=== PATIENT | female | born 1995 | race Hispanic/Latino ===

== ENCOUNTER 2017-02-19 07:33 | Outpatient (CLI) | payer BC ==
--- NOTE | 2017-02-19 08:29 | ULT ---
ULTRASOUND ABDOMEN COMPLETE: HISTORY: A 21-year-old female with generalized abdominal pain, nausea, and emesis. FINDINGS: The gallbladder has normal wall thickness and has no evidence of gallstones or sludge. The hepatic e chogenicity is normal. The kidneys have normal echogenicity, and there is no hydronephrosis. There is no splenomegaly. There is no abdominal aortic aneurysm. No free fluid is identified. The inferi or vena cava is visualized. The pancreas is visualized, although ultrasound is relatively insensitiv e for pancreatic pathology compared to CT and MRI. There is no biliary dilation. The common duct ca liber is 2 mm. IMPRESSION: Normal. jn [] POS: [facility]
== END 2017-02-19 07:34 | disposition home or self-care (01) ==
LOC: ULT 07:33
PROVIDERS: ATTEND Internal Medicine
DX: R10.84 Generalized abdominal pain (principal); R11.2 Nausea with vomiting, unspecified
CPT/HCPCS: 76700